=== PATIENT | male | born 1980 | race Two or more races ===

== ENCOUNTER 2021-01-26 13:56 | Inpatient (IN) | payer BC, MEDICAID ==
[~2021-01-26] VITALS: Ht 182.9 cm; Wt 105.4 kg
[2021-01-26 14:41] LABS: Basophils # (auto) 0 10 ^3/uL (0-0.2); Basophils % (auto) 0.3 % (0.0-2.0); Eosinophils # (auto) 0 10 ^3/uL (0-0.8); Eosinophils % (auto) 0.2 % (0.0-7.0); Hematocrit 43.8 % (41.0-53.0); Hemoglobin 14.9 g/dL (13.5-17.5); Lymphocytes # (auto) 1.7 10 ^3/uL (0.4-5.4); Lymphocytes % (auto) 26.9 % (10.0-50.0); Mean Corpuscular Hemoglobin 31.1 pg (28.0-32.0); Mean Corpuscular Hgb Conc. 33.9 g/dL (32.0-36.0); Mean Corpuscular Volume 91.8 fL (80.0-100.0); Monocytes # (auto) 0.4 10 ^3/uL (0-1.3); Monocytes % (auto) 6.4 % (0.0-12.0); Neutrophils # (auto) 4.2 10 ^3/uL (1.6-8.6); Neutrophils % (auto) 66.2 % (37.0-80.0); Nucleated Red Blood Cells % 0.1 %; Red Blood Cells 4.78 10^6/uL (4.5-5.90); Red Cell Distribution Width 13.5 % (11.8-14.3); White Blood Cell 6.3 10^3/uL (4.4-10.8)
[2021-01-26 14:57] LABS: Albumin 2.7 g/dL (3.4-5.0); BUN/Creatinine Ratio 10.3; Calcium 8.3 mg/dL (8.5-10.1); Magnesium 2.7 mg/dL (1.6-2.6); Potassium 3.4 mmol/L (3.5-5.1)
[2021-01-26 15:02] LABS: Bilirubin, Total 0.3 mg/dL (0.2-1.0); Total Protein 7.4 g/dL (6.4-8.2)
[2021-01-26] MEDS ORDERED: VANCOMYCIN 1,500 MG in D5W 5% 250 ML IV STA (18:54)
[2021-01-26] MEDS ORDERED: PIPERACILLIN-TAZO 4.5GM 100 ML IV ONE (19:00)
[2021-01-26] MEDS ORDERED: DexAMETHasone SOD PHOS 10MG/1ML VIAL INJ IV ONE (20:30)
[2021-01-26] MEDS ORDERED: DOCUSATE SOD 100 MG CAP PO PRN (21:00)
[2021-01-26] MEDS ORDERED: ACETAMINOPHEN 500 MG TAB PO PRN (21:00)
[2021-01-26] MEDS ORDERED: ONDANSETRON HCL 4 MG/2 ML VIAL IV PRN (21:00)
[2021-01-26] MEDS ORDERED: HYDROcodone-ACET 5/325MG TAB PO PRN (21:00)
[2021-01-26] MEDS ORDERED: POTASSIUM CHL 20MEQ/100ML 100 ML IV ONE (21:00)
[2021-01-26] MEDS ORDERED: DOXYCYCLINE 100MG/250ML 250 ML IV SCH (22:00)
[2021-01-26] MEDS ORDERED: NITROGLYCERIN 0.4 MG SL TAB SL PRN (22:00)
[2021-01-26] MEDS ORDERED: MORPHINE SULFATE INJECTION 2 MG/ML SYRG IV PRN (22:00)
[2021-01-26 22:22] LABS: INR 1.05 (0.9-1.15); Partial Thromboplastin Time 33.3 sec (23.6-33.0)
[2021-01-26 23:00] VITALS: BP 140/85
[2021-01-26] MEDS: SODIUM CHLORIDE 0.9% 1,000 ML IV SCH (23:06)
[2021-01-26] MEDS: FAMOTIDINE (10MG/ML) 2ML VL IV SCH (23:06)
[2021-01-26] MEDS: ENOXAPARIN SOD 40 MG/0.4 ML SYRINGE SC SCH (23:06)
[2021-01-27 00:41] VITALS: BP 141/75
[2021-01-27] MEDS: SODIUM CHLORIDE 0.9% 1,000 ML IV SCH (05:20)
[2021-01-27 05:46] VITALS: BP 129/80
[2021-01-27 06:57] LABS: Basophils # (auto) 0 10 ^3/uL (0-0.2); Basophils % (auto) 0.3 % (0.0-2.0); Eosinophils # (auto) 0 10 ^3/uL (0-0.8); Hemoglobin 15.1 g/dL (13.5-17.5); Lymphocytes # (auto) 1.1 10 ^3/uL (0.4-5.4); Lymphocytes % (auto) 17.8 % (10.0-50.0); Mean Corpuscular Hemoglobin 31.8 pg (28.0-32.0); Mean Corpuscular Hgb Conc. 34.3 g/dL (32.0-36.0); Mean Corpuscular Volume 92.6 fL (80.0-100.0); Monocytes # (auto) 0.5 10 ^3/uL (0-1.3); Monocytes % (auto) 7.4 % (0.0-12.0); Neutrophils # (auto) 4.7 10 ^3/uL (1.6-8.6); Neutrophils % (auto) 74.5 % (37.0-80.0); Nucleated Red Blood Cells % 0.1 %; Red Blood Cells 4.75 10^6/uL (4.5-5.90); Red Cell Distribution Width 13.2 % (11.8-14.3); White Blood Cell 6.4 10^3/uL (4.4-10.8)
[2021-01-27] MEDS: DOXYCYCLINE 100MG/250ML 250 ML IV SCH ×2 (07:05→18:40)
[2021-01-27 07:06] LABS: Albumin 2.7 g/dL (3.4-5.0); Calcium 8.2 mg/dL (8.5-10.1); Magnesium 3.4 mg/dL (1.6-2.6)
[2021-01-27 07:11] LABS: BUN/Creatinine Ratio 10.7; Bilirubin, Total 0.4 mg/dL (0.2-1.0); Total Protein 7.1 g/dL (6.4-8.2)
[2021-01-27] MEDS: ALBUTEROL SULF HFA 90MCG INH 200DOSE IN PRN ×2 (08:07→21:59)
[2021-01-27] MEDS: BUDESONIDE (INHALATION) 180 MCG IH IN SCH ×2 (08:08→21:59)
[2021-01-27 09:00] VITALS: BP 123/82
[2021-01-27] MEDS ORDERED: cefTRIAXone 1GM/50ML D5W 50 ML IV SCH (09:00)
[2021-01-27] MEDS: DexAMETHasone SOD PHOS 10MG/1ML VIAL INJ IV SCH (09:50)
[2021-01-27] MEDS: ASCORBIC ACID 1,000 MG TAB PO SCH (09:50)
[2021-01-27] MEDS: ENOXAPARIN SOD 40 MG/0.4 ML SYRINGE SC SCH ×2 (09:50→21:46)
[2021-01-27] MEDS: ZINC SULFATE 220mg CAP or TAB PO SCH (09:50)
[2021-01-27] MEDS: FAMOTIDINE (10MG/ML) 2ML VL IV SCH ×2 (09:50→21:46)
[2021-01-27] MEDS: CHOLECALCIFEROL (VITD3) 2,000 UNIT CAP/TAB PO SCH (09:51)
[2021-01-27] MEDS: MULTIPLE VITAMIN TAB PO SCH (09:51)
[2021-01-27] MEDS ORDERED: IVERMECTIN 3 MG TAB PO ONE (12:58)
[2021-01-27 13:00] VITALS: BP 137/76
[2021-01-27] MEDS ORDERED: HYDROcodone-ACET 10/325MG TAB PO PRN (16:45)
[2021-01-27 17:00] VITALS: BP 131/78
[2021-01-27] MEDS ORDERED: HYDR-4833 PO (18:55)
[2021-01-27 21:59] VITALS: BP 126/77
[2021-01-28 05:03] VITALS: BP 135/76
[2021-01-28] MEDS: ALBUTEROL SULF HFA 90MCG INH 200DOSE IN PRN ×2 (05:56→20:02)
[2021-01-28] MEDS: BUDESONIDE (INHALATION) 180 MCG IH IN SCH ×2 (05:56→20:02)
[2021-01-28] MEDS: DOXYCYCLINE 100MG/250ML 250 ML IV SCH ×2 (06:30→19:00)
[2021-01-28 07:20] LABS: Albumin 2.5 g/dL (3.4-5.0); Bilirubin, Direct 0.1 mg/dL (0-0.2); Bilirubin, Total 0.3 mg/dL (0.2-1.0); CRP High Sensitivity 6.66 mg/dL (< 0.3); Total Protein 6.6 g/dL (6.4-8.2)
[2021-01-28 08:00] VITALS: BP 145/78
[2021-01-28] MEDS: DexAMETHasone SOD PHOS 10MG/1ML VIAL INJ IV SCH (08:47)
[2021-01-28] MEDS: CHOLECALCIFEROL (VITD3) 2,000 UNIT CAP/TAB PO SCH (08:48)
[2021-01-28] MEDS: MULTIPLE VITAMIN TAB PO SCH (08:48)
[2021-01-28] MEDS: ASCORBIC ACID 1,000 MG TAB PO SCH (08:48)
[2021-01-28] MEDS: ZINC SULFATE 220mg CAP or TAB PO SCH (08:48)
[2021-01-28] MEDS: ENOXAPARIN SOD 40 MG/0.4 ML SYRINGE SC SCH ×2 (08:48→21:27)
[2021-01-28] MEDS: FAMOTIDINE (10MG/ML) 2ML VL IV SCH ×2 (08:48→21:26)
[2021-01-28] MEDS: IVERMECTIN 3 MG TAB PO SCH (08:48)
[2021-01-28] MEDS: HYDROcodone-ACET 10/325MG TAB PO PRN ×2 (08:49→16:45)
[2021-01-28 12:12] VITALS: BP 134/77
[2021-01-28] MEDS ORDERED: REMDESIVIR PER PHARMACY 0 ML IV SCH (14:30)
[2021-01-28] MEDS ORDERED: REMDESIVIR 200 MG in NS 210ml LOADING DOSE ADULT IV ONE (16:00)
[2021-01-28 17:06] VITALS: BP 134/85
[2021-01-28 22:00] VITALS: BP 137/83
[2021-01-29] MEDS: HYDROcodone-ACET 10/325MG TAB PO PRN ×3 (01:02→19:23)
[2021-01-29] MEDS: guaiFENesin-DM 100/10mg/5ml SYR PO PRN ×2 (03:04→21:35)
[2021-01-29 05:00] VITALS: BP 147/83
[2021-01-29] MEDS: DOXYCYCLINE 100MG/250ML 250 ML IV SCH ×2 (06:59→18:07)
[2021-01-29] MEDS: BUDESONIDE (INHALATION) 180 MCG IH IN SCH ×2 (07:00→22:20)
[2021-01-29] MEDS: ALBUTEROL SULF HFA 90MCG INH 200DOSE IN PRN ×2 (07:00→22:20)
[2021-01-29 08:11] LABS: Albumin 2.6 g/dL (3.4-5.0); Calcium 8.4 mg/dL (8.5-10.1); Potassium 3.4 mmol/L (3.5-5.1)
[2021-01-29 08:14] LABS: Bilirubin, Total 0.4 mg/dL (0.2-1.0); Total Protein 6.8 g/dL (6.4-8.2)
[2021-01-29 09:00] VITALS: BP 133/68
[2021-01-29] MEDS: FAMOTIDINE (10MG/ML) 2ML VL IV SCH ×2 (10:41→21:35)
[2021-01-29] MEDS: MULTIPLE VITAMIN TAB PO SCH (10:41)
[2021-01-29] MEDS: ZINC SULFATE 220mg CAP or TAB PO SCH (10:41)
[2021-01-29] MEDS: DexAMETHasone SOD PHOS 10MG/1ML VIAL INJ IV SCH (10:41)
[2021-01-29] MEDS: CHOLECALCIFEROL (VITD3) 2,000 UNIT CAP/TAB PO SCH (10:42)
[2021-01-29] MEDS: ENOXAPARIN SOD 40 MG/0.4 ML SYRINGE SC SCH ×2 (10:42→21:34)
[2021-01-29] MEDS: ASCORBIC ACID 1,000 MG TAB PO SCH (10:42)
[2021-01-29] MEDS: IVERMECTIN 3 MG TAB PO SCH (10:42)
[2021-01-29] MEDS ORDERED: POTASSIUM CHL 20 Meq TABLET PO ONE (10:45)
[2021-01-29 13:00] VITALS: BP 125/82
[2021-01-29] MEDS ORDERED: LOPERAMIDE HCL 2 MG CAP PO ONE (13:15)
[2021-01-29] MEDS: REMDESIVIR 100mg 100 MG in SODIUM CHL 0.9% 230 ML IV SCH (14:29)
[2021-01-29 17:00] VITALS: BP 126/80
[2021-01-29 22:00] VITALS: BP 153/88
[2021-01-30 00:50] VITALS: BP 126/80
[2021-01-30] MEDS: HYDROcodone-ACET 10/325MG TAB PO PRN ×3 (03:36→21:09)
[2021-01-30 05:00] VITALS: BP 145/87
[2021-01-30] MEDS: DOXYCYCLINE 100MG/250ML 250 ML IV SCH ×2 (06:47→19:37)
[2021-01-30 07:18] LABS: Potassium 3.9 mmol/L (3.5-5.1)
[2021-01-30 07:25] LABS: Magnesium 2.3 mg/dL (1.6-2.6)
[2021-01-30 07:33] LABS: CRP High Sensitivity 7.45 mg/dL (< 0.3)
[2021-01-30 08:54] VITALS: BP 114/73
[2021-01-30] MEDS: ENOXAPARIN SOD 40 MG/0.4 ML SYRINGE SC SCH ×2 (09:40→21:08)
[2021-01-30] MEDS: IVERMECTIN 3 MG TAB PO SCH (09:40)
[2021-01-30] MEDS: DexAMETHasone SOD PHOS 10MG/1ML VIAL INJ IV SCH (09:40)
[2021-01-30] MEDS: CHOLECALCIFEROL (VITD3) 2,000 UNIT CAP/TAB PO SCH (09:41)
[2021-01-30] MEDS: ASCORBIC ACID 1,000 MG TAB PO SCH (09:41)
[2021-01-30] MEDS: MULTIPLE VITAMIN TAB PO SCH (09:41)
[2021-01-30] MEDS: ZINC SULFATE 220mg CAP or TAB PO SCH (09:41)
[2021-01-30] MEDS: FAMOTIDINE (10MG/ML) 2ML VL IV SCH ×2 (09:42→21:08)
[2021-01-30] MEDS: guaiFENesin-DM 100/10mg/5ml SYR PO PRN (11:30)
[2021-01-30 13:00] VITALS: BP 127/79
[2021-01-30] MEDS: REMDESIVIR 100mg 100 MG in SODIUM CHL 0.9% 230 ML IV SCH (15:11)
[2021-01-30] MEDS: BUDESONIDE (INHALATION) 180 MCG IH IN SCH ×2 (16:14→20:37)
[2021-01-30 17:00] VITALS: BP 149/84
[2021-01-30] MEDS: ALBUTEROL SULF HFA 90MCG INH 200DOSE IN PRN (20:37)
[2021-01-30 22:00] VITALS: BP 131/74
[2021-01-31 05:00] VITALS: BP 136/71
[2021-01-31] MEDS: BUDESONIDE (INHALATION) 180 MCG IH IN SCH ×2 (06:00→19:02)
[2021-01-31] MEDS: ALBUTEROL SULF HFA 90MCG INH 200DOSE IN PRN ×2 (06:00→19:01)
[2021-01-31] MEDS: DOXYCYCLINE 100MG/250ML 250 ML IV SCH ×2 (06:37→18:52)
[2021-01-31] MEDS: HYDROcodone-ACET 10/325MG TAB PO PRN ×2 (06:38→17:32)
[2021-01-31 09:00] VITALS: BP 156/81
[2021-01-31] MEDS: DexAMETHasone SOD PHOS 10MG/1ML VIAL INJ IV SCH (10:42)
[2021-01-31] MEDS: ZINC SULFATE 220mg CAP or TAB PO SCH (10:42)
[2021-01-31] MEDS: FAMOTIDINE (10MG/ML) 2ML VL IV SCH ×2 (10:42→21:35)
[2021-01-31] MEDS: ASCORBIC ACID 1,000 MG TAB PO SCH (10:43)
[2021-01-31] MEDS: MULTIPLE VITAMIN TAB PO SCH (10:43)
[2021-01-31] MEDS: IVERMECTIN 3 MG TAB PO SCH (10:43)
[2021-01-31] MEDS: CHOLECALCIFEROL (VITD3) 2,000 UNIT CAP/TAB PO SCH (10:44)
[2021-01-31] MEDS: ENOXAPARIN SOD 40 MG/0.4 ML SYRINGE SC SCH ×2 (10:44→21:35)
[2021-01-31 13:00] VITALS: BP 139/83
[2021-01-31] MEDS: REMDESIVIR 100mg 100 MG in SODIUM CHL 0.9% 230 ML IV SCH (15:11)
[2021-01-31 17:00] VITALS: BP 144/80
[2021-01-31 22:00] VITALS: BP 114/68
[2021-02-01] MEDS: HYDROcodone-ACET 10/325MG TAB PO PRN ×2 (02:47→12:41)
[2021-02-01 05:00] VITALS: BP 151/79
[2021-02-01 07:22] LABS: Potassium 4.7 mmol/L (3.5-5.1)
[2021-02-01] MEDS: BUDESONIDE (INHALATION) 180 MCG IH IN SCH (07:34)
[2021-02-01] MEDS: ALBUTEROL SULF HFA 90MCG INH 200DOSE IN PRN (07:34)
[2021-02-01 07:41] LABS: CRP High Sensitivity 6.51 mg/dL (< 0.3)
[2021-02-01 09:00] VITALS: BP 129/71
[2021-02-01] MEDS: FAMOTIDINE (10MG/ML) 2ML VL IV SCH (09:01)
[2021-02-01] MEDS: DexAMETHasone SOD PHOS 10MG/1ML VIAL INJ IV SCH (09:01)
[2021-02-01] MEDS: IVERMECTIN 3 MG TAB PO SCH (09:02)
[2021-02-01] MEDS: MULTIPLE VITAMIN TAB PO SCH (09:02)
[2021-02-01] MEDS: ZINC SULFATE 220mg CAP or TAB PO SCH (09:02)
[2021-02-01] MEDS: CHOLECALCIFEROL (VITD3) 2,000 UNIT CAP/TAB PO SCH (09:03)
[2021-02-01] MEDS: ASCORBIC ACID 1,000 MG TAB PO SCH (09:03)
[2021-02-01] MEDS: ENOXAPARIN SOD 40 MG/0.4 ML SYRINGE SC SCH (09:04)
[2021-02-01] MEDS: guaiFENesin-DM 100/10mg/5ml SYR PO PRN (09:15)
[2021-02-01 13:00] VITALS: BP 120/70
[2021-02-01] MEDS ORDERED: DOXY-286 PO (13:22)
[2021-02-01] MEDS ORDERED: CHOL20007 PO (13:22)
[2021-02-01] MEDS ORDERED: ASCO10003 PO (13:22)
[2021-02-01] MEDS ORDERED: ZINC220T6 PO (13:22)
[2021-02-01] MEDS ORDERED: DEX4T PO (13:22)
[2021-02-01] MEDS ORDERED: ASPI-463 PO (13:22)
[2021-02-01] MEDS ORDERED: BUDE2SUS3 IN (13:22)
[2021-02-01] MEDS ORDERED: ALBUAER3 IN (13:22)
[2021-02-01] MEDS ORDERED: FAMO20TA10 PO (13:22)
[2021-02-01] MEDS: REMDESIVIR 100mg 100 MG in SODIUM CHL 0.9% 230 ML IV SCH (15:30)
[2021-02-01 16:52] VITALS: BP 120/70
[2021-02-01 17:00] VITALS: BP 131/83
== END 2021-02-01 18:10 | disposition home or self-care (01) | DRG 177 ==
LOC: ER 13:56 → OVERFLOW 21:58 → EAST 22:58
PROVIDERS: ADMIT Nurse Practitioner Family; ATTEND Internal Medicine
PROC: XW033E5 Introduction of Remdesivir Anti-infective into Peripheral Vein, Percutaneous Approach, New Technology Group 5 (ICD-10-PCS; principal; 2021-01-28)
DX: U07.1 COVID-19 (principal); J12.82 Pneumonia due to coronavirus disease 2019; J96.01 Acute respiratory failure with hypoxia; E87.1 Hypo-osmolality and hyponatremia; E66.9 Obesity, unspecified; E87.6 Hypokalemia; E88.09 Other disorders of plasma-protein metabolism, not elsewhere classified; I10 Essential (primary) hypertension; G47.00 Insomnia, unspecified; R79.89 Other specified abnormal findings of blood chemistry; D89.839 Cytokine release syndrome, grade unspecified; Z68.31 Body mass index [BMI] 31.0-31.9, adult
CPT/HCPCS: 36415; 36600; 71045; 80053; 80061; 80076; 82306; 82728; 82805; 83036; 83605; 83615; 83735; 84132; 84484; 85025; 85379; 85610; 85730; 86141; 87040; 87426; 93005; 93970; 94640; 96365; 96375; G0378; J0696; J1100; J2543; J3480; J3490; J7060